=== PATIENT | female | born 1985 | race Caucasian/White ===

== ENCOUNTER 2017-09-09 12:51 | Inpatient (IN) | payer OTHER, SELFPAY ==
[~2017-09-09] VITALS: Ht 160 cm; Wt 48.4 kg
[~2017-09-09 12:51] MED LIST: cloNIDine HCL 0.1 MG/24 HR PATCH TOP SCH; cloNIDine HCL 0.2 MG/24 HR PATCH TOP SCH
[2017-09-09] MEDS ORDERED: SODIUM CHLORIDE HYPERTONIC 3% 15ML NEB SOL NEB ONE ×2 (13:45→17:00)
[2017-09-09] MEDS: HEPARIN SOD (PORCINE) 5000 UNITS/ML VIAL SC SCH ×2 (14:00→21:39)
[2017-09-09] MEDS ORDERED: ONDANSETRON 4MG/2ML VIAL (J2405) IV PRN (14:00)
[2017-09-09] MEDS ORDERED: BREO1INH INH (14:53)
[2017-09-09] MEDS ORDERED: VENTAER INH (14:53)
[2017-09-09] MEDS ORDERED: SERT-138 PO (14:59)
[2017-09-09] MEDS ORDERED: SENO8.6T5 PO (14:59)
[2017-09-09] MEDS ORDERED: COLA100C5 PO (14:59)
[2017-09-09] MEDS ORDERED: LOVE1INJ SC (14:59)
[2017-09-09] MEDS ORDERED: CEFA2IV2 IV (14:59)
[2017-09-09] MEDS ORDERED: MIRA3350 PO (15:01)
[2017-09-09] MEDS ORDERED: NICODIS TD (15:01)
[2017-09-09] MEDS ORDERED: VALI10TA PO (15:03)
[2017-09-09 15:19] VITALS: BP 111/56
[2017-09-09] MEDS: MULTIVITAMINS/MINERALS THERAP 1 TAB PO SCH (16:20)
[2017-09-09] MEDS: FOLIC ACID 1 MG TAB PO SCH (16:20)
[2017-09-09] MEDS: PANTOPRAZOLE 40MG TAB (PROTONIX) PO SCH (16:20)
[2017-09-09] MEDS: THIAMINE 100 MG TAB PO SCH (16:21)
[2017-09-09] MEDS: NS 1,000 ML IV SCH (16:21)
[2017-09-09 16:26] LABS: BASO % 0.3 % (0.0-1.0); EOS # 0.2 10^3/uL (0.0-0.50); EOS % 1.9 % (0.0-3.0); IMMATURE GRANULOCYTE % 0.6 % (0-0); LYMPH # 1.8 10^3/uL (1.5-4.5); LYMPH % 22.5 % (24.0-44.0); MEAN CORPUSCULAR HEMOGLOBIN 26.5 pg (27.0-33.0); MEAN CORPUSCULAR HGB CONC 30.4 g/dl (32.0-36.5); MEAN CORPUSCULAR VOLUME 87.1 fl (80.0-96.0); MONO # 0.4 10^3/uL (0.0-0.8); MONO % 4.7 % (0.0-5.0); NEUTROPHILS # 5.5 10^3/uL (1.8-7.7); PLATELET COUNT, AUTOMATED 261 10^3/uL (150-450); RED CELL DISTRIBUTION WIDTH 19.3 % (11.5-14.5); WHITE BLOOD COUNT 7.9 10^3/uL (4.0-10.0)
[2017-09-09 16:37] LABS: INR 0.94
--- NOTE | 2017-09-09 16:42 | REP ---
Clinical: Shortness of breath . Comparison: None . Findings: The mediastinum and cardiac silhouette are stable and within normal limits for portable technique. The lung russell are clear without acute consolidation, effusion, or pneumothorax. Skeletal structures are intact. Impression: No acute cardiopulmonary process appreciated. Signed by Ray Allen MD 09/09/2017 04:34 P
[2017-09-09] MEDS ORDERED: IPRATROPIUM 0.5MG/ALBUTEROL 2.5MG INH SOL UD 3ML (DUONEB)(J7620) NEB PRN (16:45)
[2017-09-09 16:49] LABS: ERYTHROCYTE SEDIMENTATION RATE 87 mm/hr (0-20)
[2017-09-09 16:57] LABS: ALBUMIN 2.6 GM/DL (3.2-5.2); ALBUMIN/GLOBULIN RATIO 0.72 (1.00-1.93); ALKALINE PHOSPHATASE 51 U/L (45-117); ALT/SGPT 18 U/L (12-78); ANION GAP 5 MEQ/L (8-16); AST/SGOT 16 U/L (7-37); BILIRUBIN,TOTAL 0.1 MG/DL (0.2-1.0); BLOOD UREA NITROGEN 13 MG/DL (7-18); CARBON DIOXIDE LEVEL 28 MEQ/L (21-32); CHLORIDE LEVEL 106 MEQ/L (98-107); CREATININE FOR GFR 0.63 MG/DL (0.55-1.02); GLOMERULAR FILTRATION RATE > 60.0 (>60); GLUCOSE, FASTING 119 MG/DL (70-105); POTASSIUM SERUM 4.9 MEQ/L (3.5-5.1); SODIUM LEVEL 139 MEQ/L (136-145); TOTAL PROTEIN 6.2 GM/DL (6.4-8.2)
[2017-09-09] MEDS ORDERED: KETOROLAC 30 MG/ML VIAL (J1885) IV PRN (17:30)
--- NOTE | 2017-09-09 17:31 | HPE ---
DATE OF ADMISSION: 09/09/2017 PRIMARY CARE PROVIDER: Dr. Adonis Iglesias CHIEF COMPLAINT: Suspected endocarditis, fevers. HISTORY OF PRESENT ILLNESS: This is a 32-year-old female patient with underlying medical history of asthma, IV drug use, last with oxycodone, last used two weeks ago, smoking, asthma, who was treated for methicillin-sensitive Staphylococcus aureus (MSSA) in January and signed herself out against medical advice. Subsequently, she returned with a two-week history of progressively worsening fevers with a temperature of 103 and coughing productive of blood-tinged phlegm. The patient with culture returned to [facility] on 09/05/2017 for MSSA bacteremia, found to have a fever of 104. CT angiogram shows cavitary peripheral lesions. The patient denies any sick contact. Subsequently, the patient was admitted. She was given Ancef. She also has a history of depression and denies suicidality. Patient with questionable thyroid dysfunction. Over the last 24 hours, maximum temperature (T-max) is 99.8 as per the patient. Reported some mild cough. Reported chest pain, pleuritic in nature. Denies any nausea or vomiting. Reported anxiety secondary to opiate withdrawal and also reported constipation. ALLERGIES: No known drug allergies. PAST MEDICAL HISTORY: 1. IV drug use. 2. Asthma. 3. Depression, denies suicidality. 4. Methicillin-sensitive Staphylococcus aureus (MSSA) on cultures. PAST SURGICAL HISTORY: Tubal ligation. FAMILY HISTORY: Grandfather with throat cancer. SOCIAL HISTORY: Reported IV drug use, smoking one pack per day for 15 years, IV drug use for three years with oxycodone. She lives at home with and child was taken away from [employer]. REVIEW OF SYSTEMS: Positive for chest pain, anxiety. Reported depression. Denies suicidality. Reported cough with blood in the sputum and blackish sputum. Reported fevers and chills. PHYSICAL EXAMINATION: VITAL SIGNS: Temperature 98.3, pulse 90, respiratory rate 18, blood pressure 111/56, pulse oximetry 98% on room air. GENERAL: The patient is frail in no acute distress. HEENT: Normocephalic, atraumatic. PULMONARY: Bilaterally clear to auscultation. CARDIAC: Regular, S1, S2. ABDOMEN: Soft, nontender. Positive bowel sounds. EXTREMITIES: No clubbing, cyanosis, or edema. IMAGING STUDIES: EKG shows sinus rhythm with no ST segment changes. CT scan shows cavitary lesion periphery of the lung. LABORATORY DATA: WBC 7.8, hemoglobin and hematocrit 9/29.6, platelets 261. Chemistry: At [facility], sodium 145, potassium 34, chloride 110, bicarbonate 26, BUN 13, creatinine 0.49, glucose 101, ESR 61, C-reactive protein 26.1, TSH 4.928. ASSESSMENT AND PLAN: This is a 32-year-old female patient with history of asthma, IV drug use with oxycodone, smoking, initially admitted to [facility] with methicillin-sensitive Staphylococcus aureus (MSSA), suspected pneumonia, found to have cavitary lesions on the periphery of the lung, treated with Ancef, transferred to [facility] for infectious disease (ID) consultation and transesophageal echocardiogram. PROBLEM LIST: 1. Methicillin-sensitive Staphylococcus aureus (MSSA) suspected endocarditis with fevers. Continue Ancef. Infectious disease has been consulted. Followup erythrocyte sedimentation rate (ESR), C-reactive protein (CRP), blood cultures. Discussed with Dr. Hand for transesophageal echocardiogram. Case discussed with Dr. Kahn. IV fluids have been given. Will need long-term access. 2. The patient with significant cough. Reported blood-tinged sputum. Discussed with Dr. Kahn. Likely secondary to septic emboli. Low suspicion for tuberculosis (TB) as per Dr. Kahn given the CT finding. Therefore, no need for airborne isolation as per Dr. Kahn. We will get HIV, hepatitis, sputum cultures. Chest x-ray appreciated. QuantiFERON Gold has been ordered for screening purposes. 3. IV drug use. Followup hepatitis, HIV. Monitor for withdrawal. Thiamine, folate, multivitamin, clonidine. Avoid benzodiazepines. Avoid narcotics. Reglan. Social work has been consulted. 4. Asthma. The patient does not have any wheeze. Nebulizer treatment as needed. 5. Low thyroid-stimulating hormone (TSH). Thyroid profile has been ordered. 6. Depression. Continue current medication, nonsuicidal. 7. Deep vein thrombosis (DVT) prophylaxis. Heparin subcutaneous. DISPOSITION PLANNING: Pending clinical improvement.
[2017-09-09] MEDS: METOCLOPRAMIDE 5 MG TAB PO SCH (18:00)
[2017-09-09 18:30] VITALS: BP 116/66
--- NOTE | 2017-09-09 19:04 | CR.PDOC ---
[facility] Consultation Consultation Infectious Disease Consult Note Date of Consultation: 09/09/2017 Reason for Consultation: Suspected endocarditis secondary to IV drug use Referring Provider: Dr. Gaviota Gipson PCP: Dr. Adonis Iglesias HISTORY OF PRESENT ILLNESS: Ms. Shrestha is a 32-year-old female who was transferred to our facility from [facility] for in order to have a transesophageal echocardiogram performed for evaluation of endocarditis, as well as she will need placement of the PICC line for long-term IV antibiotics. Cultures have been confirmed that she has MSSA bacteremia, and most recent blood cultures are negative as she has been on appropriate therapy with cefazolin 2 g IV every 8 hours. She had been in [facility] for the past 5 days, she states that for approximately one week prior to that she had been having severe fevers up to 104, chills, night sweats, lack of appetite, a few episodes of vomiting, cough, chest pain with cough and deep inspiration, she is also having occasional blood-tinged sputum. It does appear that she has some cavitary lesions on chest CT which is suspected to be septic emboli. ALLERGIES: No known drug allergies PAST MEDICAL HISTORY: IV drug use with a crushed oxycodone, she states that she did go to rehabilitation back in July 2016, she was clean for approximately 9 months, however in the past 2 months she has relapsed and was using IV drugs approximately 2-3 times a day. Prior to that she had been an IV drug user for approximately 2 years, she denies using heroin, cocaine, or any other drugs, and crust oxycodone is her drug of choice. She also does suffer from mild intermittent asthma Depression, she did have suicidal ideations as a teenager, but does not have any recently or currently. She does have a psychiatric counselor whom she has been trying to work with. PAST SURGICAL HISTORY: Tubal ligation SOCIAL HISTORY: She does indicate that she has 4 children, I believe their ages are 14, 11, 9, and 7. None of them are at home with her, as well as oncology social worker has been involved since the initiation of her IV drug use, and they appear to be with her father at this time. She apparently works on a farm. She denies any alcohol use. She has been smoking a pack per day since she was 16 years old. She has never been incarcerated, she is never been homeless, and she has not traveled out of side of the [facility]. She has never been exposed to tuberculosis that she knows of. FAMILY HISTORY: Her mother apparently does have asthma as well REVIEW OF SYSTEMS: Constitutional: All other she did suffer from all of these symptoms prior to her hospitalization, she currently denies fevers, chills, night sweats, recent weight gain/loss. She does admit that she is still going through opiate withdrawal almost every night, therefore she does continue to sweat, however is not from her fevers. HEENT: Patient denies blurred or double vision, transient visual disturbances, postnasal drip, epistaxis, sore throat, difficulty chewing or swallowing food. Cardiovascular: Patient denies palpitations, exertional dyspnea, orthopnea, edema of the extremities, claudication. Respiratory: She does admit to some sharp pain upon deep inspiration located mainly on the left chest wall. She does continue to cough, and said that she did have some blood-tinged sputum the past 1-2 days, and she says that her sputum has normally been black. Gastrointestinal: She currently denies nausea, vomiting, diarrhea, abdominal pain, melena, hematochezia, hematemesis, jaundice. She does suffer from constipation. PHYSICAL EXAMINATION: Vitals: Temperature 98.3, pulse 90 regular, respiratory rate 18, blood pressure 116/66, pulse oximetry 98% on room air General: Awake, alert, she is not in any acute distress at this time. She is quite thin appearing HEENT: Head normocephalic atraumatic, conjunctiva are pink, sclera are nonicteric, buccal mucosa is pink and moist with no lesions in the oropharynx. Hearing is grossly intact to conversation. Dentition is poor. Respiratory: Clear to auscultation bilaterally with no wheezes, rales, or rhonchi. Cardiovascular: Regular rate and rhythm, with no rubs, gallops, or murmur. Abdomen: Soft, nontender, nondistended, no hepatosplenomegaly appreciated. Bowel sounds present. Extremities: 2+ pulses in the radial and dorsalis pedis bilaterally. No evidence of cyanosis. No evidence of splinter hemorrhages. She does have some clubbing of the fingernails. She does have multiple small pinpoint accident where she previously injected IV drugs in the bilateral antecubital spaces as well as bilateral hands and wrists. MICROBIOLOGY: According to records from [facility] the patient did have MSSA bacteremia and this is also suspected etiology for her pneumonia ASSESSMENT/PLAN: She was transferred to our facility for evaluation of MSSA bacteremia, MSSA pneumonia, and suspected endocarditis from IV drug use. Upon reviewing the records, it does appear that she does have cavitary lung lesions, however this is most likely from septic emboli, and the risk for TB is low, therefore she no longer needs to be on precautions for this. It appears that she is already been scheduled for a transesophageal echocardiogram for tomorrow, as well as PICC line placement for tomorrow as well. I recommend continuing the same dose of antibiotic she was on previously of cefazolin 2 g IV every 8 hours. She will likely need to be on this for 4-6 weeks. It appears that the plan is for her to have these evaluations completed, and then she will return back to [facility] for the remainder of her antibiotic administration (perhaps in the rehabilitation area, or long-term nursing facility), as it is not a good idea to allow an IV drug user to go home with a PICC line. In addition of this it would be a good idea to evaluate her for HIV and hepatitis. She'll need treatment for her pain, as well as treatment for her opiate withdrawal per recommendations from the hospitalist team. My preceptor for this patient encounter was physically present in the building during the encounter and was fully available. As needed, all aspects of the patient interview, examination, medical decision making process, and medical care plan development were reviewed and approved by the preceptor. Preceptor is aware and concurs with the plan as stated in the body of this note and will attest to such by his/her cosignature. Laboratory Data Labs 24H Laboratory Tests 2 09/09/17 16:08: Immature Granulocyte % (Auto) 0.6H, White Blood Count 7.9, Red Blood Count 3.40L , Hemoglobin 9.0L, Hematocrit 29.6L, Mean Corpuscular Volume 87.1, Mean Corpuscular Hemoglobin 26.5L, Mean Corpuscular Hemoglobin Concent 30.4L, Red Cell Distribution Width 19.3H, Platelet Count 261, Neutrophils (%) (Auto) 70.0H , Lymphocytes (%) (Auto) 22.5L, Monocytes (%) (Auto) 4.7, Eosinophils (%) (Auto ) 1.9, Basophils (%) (Auto) 0.3, Neutrophils # (Auto) 5.5, Lymphocytes # (Auto) 1.8, Monocytes # (Auto) 0.4, Eosinophils # (Auto) 0.2, Basophils # (Auto) 0.0, Immature Granulocyte # (Auto) 0.1H, Nucleated Red Blood Cells % (auto) 0.0, Erythrocyte Sedimentation Rate 87H, Prothrombin Time 12.6, Prothromb Time International Ratio 0.94, Anion Gap 5L, Glomerular Filtration Rate > 60.0, Lactic Acid Level 1.3, Blood Urea Nitrogen 13, Creatinine 0.63, Sodium Level 139 , Potassium Level 4.9, Chloride Level 106, Carbon Dioxide Level 28, Calcium Level 8.0L, Aspartate Amino Transf (AST/SGOT) 16, Alanine Aminotransferase (ALT/ SGPT) 18, Alkaline Phosphatase 51, Total Bilirubin 0.1L, Total Protein 6.2L, Albumin 2.6L, Total Creatine Kinase 17L, Creatine Kinase MB 1.0, Creatine Kinase MB Relative Index 5.88H, Troponin I < 0.02, C-Reactive Protein, Quantitative 1.10H, Albumin/Globulin Ratio 0.72L CBC/BMP Laboratory Tests 09/09/17 16:08 Red Blood Count 3.40 L, Mean Corpuscular Volume 87.1, Mean Corpuscular Hemoglobin 26.5 L, Mean Corpuscular Hemoglobin Concent 30.4 L, Red Cell Distribution Width 19.3 H, Neutrophils (%) (Auto) 70.0 H, Lymphocytes (%) (Auto ) 22.5 L, Monocytes (%) (Auto) 4.7, Eosinophils (%) (Auto) 1.9, Basophils (%) ( Auto) 0.3, Neutrophils # (Auto) 5.5, Lymphocytes # (Auto) 1.8, Monocytes # (Auto ) 0.4, Eosinophils # (Auto) 0.2, Basophils # (Auto) 0.0, Calcium Level 8.0 L, Aspartate Amino Transf (AST/SGOT) 16, Alanine Aminotransferase (ALT/SGPT) 18, Alkaline Phosphatase 51, Total Bilirubin 0.1 L, Total Protein 6.2 L, Albumin 2.6 L Microbiology Microbiology 09/09/17 Blood Culture, Received Pending 09/09/17 Blood Culture, Received Pending 09/09/17 Gram Stain, Received Pending 09/09/17 Sputum Culture, Received Pending Allergies Coded Allergies: No Known Drug Allergy (Verified Allergy, Unknown, 09/09/17) Home Medications Scheduled Cefazolin Sod (Cefazolin/Dextrose 2 gm/100Ml) 2 Gm/100 Ml Inj, 2 GM IV Q8H, ( Reported) Docusate Sodium (Colace) 100 Mg Cap, 100 MG PO BID, (Reported) Enoxaparin Sodium (Lovenox) 40 Mg/0.4 Ml Inj, 40 MG SC QHS, (Reported) Fluticasone/Vilanterol (Breo Ellipta 100-25 Mcg/INH) 1 Inh Inh, 1 PUFF INH DAILY , (Reported) Nicotine (Nicotine Step 1) 21 Mg/24 Hr Dis, 21 MG TD DAILY, (Reported) Senna (Senokot) 8.6 Mg Tab, 1 TAB PO BID, (Reported) Sertraline HCl (Sertraline HCl) 100 Mg Tab, 200 MG PO DAILY, (Reported) Scheduled PRN Albuterol Sulfate (Ventolin Hfa) 108 Mcg/Act Aer, 2 PUFFS INH Q4HP PRN for SHORTNESS OF BREATH, (Reported) Diazepam (Valium) 10 Mg Tab, 10 MG PO Q6HP PRN for AGITATION, (Reported) Polyethylene Glycol (Miralax) 1 Pow Pow, 17 GM PO DAILYPRN PRN for CONSTIPATION , #1 (Reported) dilute in 8 ounces of water or juice BAHMAN QUIÑONES DO Sep 09, 2017 19:04
[2017-09-09 20:00] VITALS: BP 155/76
[2017-09-09] MEDS: IPRATROPIUM 0.5MG/ALBUTEROL 2.5MG INH SOL UD 3ML (DUONEB)(J7620) NEB SCH (20:00)
[2017-09-09] MEDS ORDERED: hydrOXYzine 10 MG TAB PO ONE (20:45)
[2017-09-09] MEDS: SENOKOT S TAB PO SCH (21:39)
[2017-09-10] VITALS (22 sets, daily range): BP systolic 96–133; BP diastolic 55–79
[2017-09-10] MEDS: NS 1,000 ML IV SCH (01:34)
[2017-09-10] MEDS: IPRATROPIUM 0.5MG/ALBUTEROL 2.5MG INH SOL UD 3ML (DUONEB)(J7620) NEB SCH ×4 (02:00→20:00)
[2017-09-10 05:36] LABS: MEAN CORPUSCULAR HEMOGLOBIN 26.8 pg (27.0-33.0); MEAN CORPUSCULAR HGB CONC 30.8 g/dl (32.0-36.5); MEAN CORPUSCULAR VOLUME 87.2 fl (80.0-96.0); PLATELET COUNT, AUTOMATED 251 10^3/uL (150-450); RED CELL DISTRIBUTION WIDTH 19.3 % (11.5-14.5); WHITE BLOOD COUNT 7.1 10^3/uL (4.0-10.0)
[2017-09-10 06:06] LABS: ANION GAP 6 MEQ/L (8-16); BLOOD UREA NITROGEN 8 MG/DL (7-18); CARBON DIOXIDE LEVEL 28 MEQ/L (21-32); CHLORIDE LEVEL 107 MEQ/L (98-107); CREATININE FOR GFR 0.56 MG/DL (0.55-1.02); GLOMERULAR FILTRATION RATE > 60.0 (>60); GLUCOSE, FASTING 98 MG/DL (70-105); POTASSIUM SERUM 4.3 MEQ/L (3.5-5.1); SODIUM LEVEL 141 MEQ/L (136-145); T UPTAKE 34 % (30-39); THYROXINE (T4) 6.3 UG/DL (4.5-12.0)
[2017-09-10] MEDS ORDERED: ACETAMINOPHEN 325 MG TAB PO ONE (06:15)
[2017-09-10] MEDS: METOCLOPRAMIDE 5 MG TAB PO SCH ×3 (06:30→17:30)
[2017-09-10] MEDS: HEPARIN SOD (PORCINE) 5000 UNITS/ML VIAL SC SCH ×3 (06:30→20:41)
[2017-09-10] MEDS: ACETAMINOPHEN TAB 650MG DOSE (2X325MG) PO PRN ×2 (06:31→18:30)
[2017-09-10] MEDS: FOLIC ACID 1 MG TAB PO SCH (08:39)
[2017-09-10] MEDS: MIRALAX *UNIT DOSE* 17GM PACKET PO SCH (08:39)
[2017-09-10] MEDS: SENOKOT S TAB PO SCH ×2 (08:40→20:41)
[2017-09-10] MEDS: THIAMINE 100 MG TAB PO SCH (08:40)
[2017-09-10] MEDS: SERTRALINE 100 MG TAB PO SCH (08:40)
[2017-09-10] MEDS: MULTIVITAMINS/MINERALS THERAP 1 TAB PO SCH (08:40)
[2017-09-10] MEDS: NICOTINE 21MG/24HR 1 EA TRANSDERMAL TD SCH (08:41)
[2017-09-10] MEDS: PANTOPRAZOLE 40MG TAB (PROTONIX) PO SCH (08:42)
[2017-09-10] MEDS: SODIUM CHLORIDE HYPERTONIC 3% 15ML NEB SOL NEB SCH ×2 (09:00→17:00)
[2017-09-10] MEDS: diazePAM 2 MG TAB PO PRN ×2 (09:24→20:41)
--- NOTE | 2017-09-10 11:27 | IPNPDOC ---
Date Seen The patient was seen on 09/10/17. Progress Note SUBJECTIVE: Patient is a 32-year-old female with past medical history of asthma; IV drug use, last used crushed oxycodone IV two weeks ago presenting from [facility] for further evaluation and treatment of MSSA bacteremia and possible endocarditis with pulmonary septic emboli. Today she was seen bedside, sitting up in bed in no apparent distress, but appearing mildly anxious. She does continue to have constipation. She denies lightheadedness, dizziness, headache, chest pain, difficulty breathing, shortness of breath, nausea, vomiting. OBJECTIVE PHYSICAL EXAMINATION: VITAL SIGNS: Please see below. GENERAL: Well-appearing female appearing older than her stated age. HEENT: Atraumatic, normocephalic. EOMI. Neck supple. CARDIOVASCULAR: Normal S1/S2, regular rate, no noted rubs, murmurs, or gallops. RESPIRATORY: Initial inspiratory wheezing noted in the bases bilaterally; clear otherwise bilaterally ABDOMINAL: Soft, non-tender, no peritoneal signs. Normoactive bowel sounds. EXTREMITIES: Moves all extremities NEUROLOGICAL: CN II-XII gross intact, no reported peripheral neuropathy PSYCHOLOGICAL: Appears mildly anxious LABORATORY DATA: Please see below. MICROBIOLOGY: Please see below. IMAGING: Chest X-Ray Impression: No acute cardiopulmonary process appreciated. Echocardiogram: JEANNETTE planned for today. DVT prophylaxis ordered?: Heparin 5000 units SQ Q8H. ASSESSMENT AND PLAN: This is a 32-year-old female with MSSA bacteremia , possible endocarditis with pulmonary septic emboli. PROBLEMS: 1. Possible endocarditis: - Positive MSSA bacteremia - ID consulted and recommended continuing current dose of Cefazolin 2g IV every 8 hours; if positive endocarditis, then continue IV Abx therapy for 4-6 weeks likely in an in-patient setting as patient is a reported IV drug user and sending her home with a PICC line would be disadvantageous to her recovery; HIV and hepatitis screening - JEANNETTE planned for today 2. Anemia: - Obtaining reticulocyte count and peripheral smear - No active bleeding currently 3. Opioid withdrawal: - Currently on Thiamine, multivitamin, and Folate - Recommendations include managing opioid withdrawal; doing so with Diazepam 2mg by mouth every 6 hours, as needed 4. Cough, possibly due to septic emboli: - ID recommendations state that patient is low risk for TB and thus screening is not currently necessary - Sputum culture pending 5. Depression: - Continue with current medication regimen 6. High TSH: - Possibly reactive; T4, T3 were within optimal range - Currently asymptomatic for underlying, undiagnosed thyroid disease 7. Nicotine dependence: - Continue with Nicotine patch 8. Asthma - Continue with DuoNebs DISPOSITION: ICU until completion of JEANNETTE and PICC line placement; likely return to [facility] for continued IV antibiotic treatment. VS, I&O, 24H, Fishbone Vital Signs/I&O Vital Signs Date Time Temp Pulse Resp B/P (MAP) Pulse Ox O2 Delivery O2 Flow Rate FiO2 09/10/17 06:00 97 99/55 (70) 09/10/17 04:00 99.2 18 95 Room Air Laboratory Data 24H LABS Laboratory Tests 2 09/09/17 16:08: Immature Granulocyte % (Auto) 0.6H, White Blood Count 7.9, Red Blood Count 3.40L , Hemoglobin 9.0L, Hematocrit 29.6L, Mean Corpuscular Volume 87.1, Mean Corpuscular Hemoglobin 26.5L, Mean Corpuscular Hemoglobin Concent 30.4L, Red Cell Distribution Width 19.3H, Platelet Count 261, Neutrophils (%) (Auto) 70.0H , Lymphocytes (%) (Auto) 22.5L, Monocytes (%) (Auto) 4.7, Eosinophils (%) (Auto ) 1.9, Basophils (%) (Auto) 0.3, Neutrophils # (Auto) 5.5, Lymphocytes # (Auto) 1.8, Monocytes # (Auto) 0.4, Eosinophils # (Auto) 0.2, Basophils # (Auto) 0.0, Immature Granulocyte # (Auto) 0.1H, Nucleated Red Blood Cells % (auto) 0.0, Erythrocyte Sedimentation Rate 87H, Prothrombin Time 12.6, Prothromb Time International Ratio 0.94, Anion Gap 5L, Glomerular Filtration Rate > 60.0, Lactic Acid Level 1.3, Blood Urea Nitrogen 13, Creatinine 0.63, Sodium Level 139 , Potassium Level 4.9, Chloride Level 106, Carbon Dioxide Level 28, Calcium Level 8.0L, Aspartate Amino Transf (AST/SGOT) 16, Alanine Aminotransferase (ALT/ SGPT) 18, Alkaline Phosphatase 51, Total Bilirubin 0.1L, Total Protein 6.2L, Albumin 2.6L, Total Creatine Kinase 17L, Creatine Kinase MB 1.0, Creatine Kinase MB Relative Index 5.88H, Troponin I < 0.02, C-Reactive Protein, Quantitative 1.10H, Albumin/Globulin Ratio 0.72L 09/10/17 05:24: Nucleated Red Blood Cells % (auto) 0.0, Anion Gap 6L, Glomerular Filtration Rate > 60.0, Blood Urea Nitrogen 8, Creatinine 0.56, Sodium Level 141, Potassium Level 4.3, Chloride Level 107, Carbon Dioxide Level 28, Calcium Level 8.0L, C-Reactive Protein, Quantitative 0.89H, Magnesium Level 2.0, Thyroid Stimulating Hormone (TSH) 5.280H, Free Thyroxine Index 2.1, Thyroxine (T4) 6.3, Triiodothyronine (T3) Uptake 34 CBC/BMP Laboratory Tests 09/09/17 16:08 Red Blood Count 3.40 L, Mean Corpuscular Volume 87.1, Mean Corpuscular Hemoglobin 26.5 L, Mean Corpuscular Hemoglobin Concent 30.4 L, Red Cell Distribution Width 19.3 H, Neutrophils (%) (Auto) 70.0 H, Lymphocytes (%) (Auto ) 22.5 L, Monocytes (%) (Auto) 4.7, Eosinophils (%) (Auto) 1.9, Basophils (%) ( Auto) 0.3, Neutrophils # (Auto) 5.5, Lymphocytes # (Auto) 1.8, Monocytes # (Auto ) 0.4, Eosinophils # (Auto) 0.2, Basophils # (Auto) 0.0, Calcium Level 8.0 L, Aspartate Amino Transf (AST/SGOT) 16, Alanine Aminotransferase (ALT/SGPT) 18, Alkaline Phosphatase 51, Total Bilirubin 0.1 L, Total Protein 6.2 L, Albumin 2.6 L 09/10/17 05:24 Red Blood Count 3.43 L, Mean Corpuscular Volume 87.2, Mean Corpuscular Hemoglobin 26.8 L, Mean Corpuscular Hemoglobin Concent 30.8 L, Red Cell Distribution Width 19.3 H, Calcium Level 8.0 L Microbiology Microbiology 09/09/17 Blood Culture, Received Pending 09/09/17 Blood Culture, Received Pending 09/09/17 Gram Stain, Received Pending 09/09/17 Sputum Culture, Received Pending MARIAN ROSA Sep 10, 2017 09:17
[2017-09-10] MEDS ORDERED: SODIUM CHLORIDE 0.9% INJ 10 ML SYR IV PRN (12:30)
[2017-09-10 12:42] LABS: RETIC HEMOGLOBIN EQUIVALENT 31.4 pg (24-36); RETICULOCYTE % 4.2 % (0.5-1.5)
[2017-09-10 12:57] LABS: REASON FOR REVIEW COMPREHENSIVE REVIEW
[2017-09-10] MEDS ORDERED: MIDAZOLAM INJ 2 MG/2 ML VIAL (J2250) As Ordered ONE (16:21)
[2017-09-10] MEDS ORDERED: MIDAZOLAM INJ 2 MG/2 ML VIAL (J2250) IV ONE (16:43)
[2017-09-10] MEDS ORDERED: LIDOCAINE VISCOUS 2% SOLN 15ML UDC SS ONE (17:00)
[2017-09-10] MEDS: SODIUM CHLORIDE 0.9% INJ 10 ML SYR IV SCH (18:00)
[2017-09-10] MEDS: RAMELTEON 8 MG TAB (ROZEREM) PO SCH (22:08)
--- NOTE | 2017-09-11 00:45 | ECGEPIP ---
Stationary ECG Study [facility] Test Date: 2017-09-09 Pat Name: DIANNA CARDOSO Department: Room: [place] [address] Gender: F Professor Of Pathology: ALIVIA : 1985 Requested By: FABIOLA BO Order Number: [id number] Reading MD: Sean Forbes Measurements Intervals [place] Rate: 89 P: 71 [place]: 153 QRS: 42 QRSD: 78 T: 43 QT: 344 QTc: 419 Interpretive Statements SINUS RHYTHM No prior tracing in the system Electronically Signed On 09-11-2017 0:44:48 EST by Sean Forbes
[2017-09-11] MEDS: IPRATROPIUM 0.5MG/ALBUTEROL 2.5MG INH SOL UD 3ML (DUONEB)(J7620) NEB SCH ×4 (02:00→20:00)
[2017-09-11 02:15] VITALS: BP 98/52
[2017-09-11] MEDS ORDERED: diazePAM 2 MG TAB As Ordered ONE (02:55)
[2017-09-11 04:26] LABS: MEAN CORPUSCULAR HEMOGLOBIN 27.2 pg (27.0-33.0); MEAN CORPUSCULAR HGB CONC 31.1 g/dl (32.0-36.5); MEAN CORPUSCULAR VOLUME 87.5 fl (80.0-96.0); PLATELET COUNT, AUTOMATED 257 10^3/uL (150-450); RED CELL DISTRIBUTION WIDTH 18.7 % (11.5-14.5); WHITE BLOOD COUNT 7.2 10^3/uL (4.0-10.0)
[2017-09-11 04:30] VITALS: BP 93/61
[2017-09-11 04:55] LABS: ANION GAP 5 MEQ/L (8-16); BLOOD UREA NITROGEN 9 MG/DL (7-18); CALCIUM LEVEL 7.9 MG/DL (8.5-10.1); CARBON DIOXIDE LEVEL 29 MEQ/L (21-32); CHLORIDE LEVEL 106 MEQ/L (98-107); CREATININE FOR GFR 0.55 MG/DL (0.55-1.02); GLOMERULAR FILTRATION RATE > 60.0 (>60); GLUCOSE, FASTING 95 MG/DL (70-105); MAGNESIUM LEVEL 2.1 MG/DL (1.8-2.4); POTASSIUM SERUM 4.1 MEQ/L (3.5-5.1); SODIUM LEVEL 140 MEQ/L (136-145)
[2017-09-11] MEDS: HEPARIN SOD (PORCINE) 5000 UNITS/ML VIAL SC SCH ×3 (06:04→21:17)
[2017-09-11] MEDS: SODIUM CHLORIDE 0.9% INJ 10 ML SYR IV SCH ×2 (06:06→18:00)
[2017-09-11] MEDS: SERTRALINE 100 MG TAB PO SCH (07:57)
[2017-09-11] MEDS: METOCLOPRAMIDE 5 MG TAB PO SCH ×3 (07:57→18:05)
[2017-09-11] MEDS: PANTOPRAZOLE 40MG TAB (PROTONIX) PO SCH (07:58)
[2017-09-11] MEDS: NICOTINE 21MG/24HR 1 EA TRANSDERMAL TD SCH (07:58)
[2017-09-11] MEDS: MULTIVITAMINS/MINERALS THERAP 1 TAB PO SCH (07:58)
[2017-09-11] MEDS: THIAMINE 100 MG TAB PO SCH (07:58)
[2017-09-11] MEDS: FOLIC ACID 1 MG TAB PO SCH (07:58)
[2017-09-11] MEDS: SENOKOT S TAB PO SCH ×2 (07:58→21:16)
[2017-09-11] MEDS: MIRALAX *UNIT DOSE* 17GM PACKET PO SCH (07:59)
[2017-09-11 08:00] VITALS: BP 99/65
[2017-09-11] MEDS: diazePAM 2 MG TAB PO PRN ×3 (09:12→21:57)
[2017-09-11] MEDS: GABAPENTIN 100 MG CAP PO SCH ×3 (11:05→21:16)
--- NOTE | 2017-09-11 11:30 | IPNPDOC ---
Date Seen The patient was seen on 09/11/17. Progress Note SUBJECTIVE: Patient is a 32-year-old female with past medical history of asthma; IV drug use, last used crushed oxycodone IV two weeks ago presenting from [facility] for further evaluation and treatment of MSSA bacteremia and possible endocarditis with pulmonary septic emboli. Today, patient was seen bedside, lying in bed supine awake and in no apparent distress. She states withdrawal symptoms limited her sleep overnight to 1 hour. She reports sweating and chills due to withdrawal overnight; however, she has had no recorded episodes of tachycardia or hypertension. She states she has a headache across her forehead bilaterally, but attributes this to not having her glasses. At present, she denies lightheadedness, dizziness, chest pain, difficulty breathing, abdominal pain, nausea, vomiting. OBJECTIVE PHYSICAL EXAMINATION: VITAL SIGNS: Please see below. GENERAL: Well-appearing female appearing older than her stated age HEENT: Atraumatic, normocephalic. EOMI. PERRLA; pupils dilated at 6mm at rest. Neck supple CARDIOVASCULAR: Normal S1/S2; regular rate; no murmurs, rubs, or gallops noted. RESPIRATORY: Clear to auscultation apices to bases bilaterally. ABDOMINAL: Soft, non-tender, no peritoneal signs, normoactive bowel sounds EXTREMITIES: Moves all extremities; no noted peripheral edema NEUROLOGICAL: CN II-XII grossly intact PSYCHOLOGICAL: Anxious appearing, but with pleasant affect; demonstrates understanding of treatment plan. LABORATORY DATA: Please see below. MICROBIOLOGY: Please see below. IMAGING: Chest X-Ray Impression: No acute cardiopulmonary process appreciated. Echocardiogram: JEANNETTE planned for today. DVT prophylaxis ordered?: Heparin 5000 units SQ Q8H. ASSESSMENT AND PLAN: This is a 32-year-old female with MSSA bacteremia , vegetative endocarditis with pulmonary septic emboli. PROBLEMS: 1. Endocarditis: - Positive MSSA bacteremia reported from [place]; current cultures so far are negative - ID consulted and recommended continuing current dose of Cefazolin 2g IV every 8 hours and to continue with 4-6 weeks, likely in an in-patient setting as patient is a reported IV drug user and sending her home with a PICC line would be disadvantageous to her recovery - HIV and hepatitis screening are both negative - JEANNETTE yesterday showed vegetations; will require 4-6 weeks intravenous antibiotic therapy 2. Anemia: - No active bleeding currently - Reticulocyte production index calculates to 1.87 (using normal Hct of 45): normal response to anemia - Peripheral smear shows normocytic anemia; no abnormal immature leukocytes identified; essentially normal platelet morphology 3. Opioid withdrawal: - Currently on Thiamine, multivitamin, and Folate - Diazepam 2mg by mouth every 6 hours, as needed for anxiety - Gabapentin 100mg by mouth 3 times per day for neuropathic pain - Ramelteon 8mg by mouth every day at bedtime 4. Cough, possibly due to septic emboli: - ID recommendations state that patient is low risk for TB and thus screening is not currently necessary - Sputum culture showed yeast like organism, staphylococcus aureus 5. Depression: - Continue with current medication regimen 6. High TSH: - Possibly reactive; T4, T3 were within optimal range - Currently asymptomatic for underlying, undiagnosed thyroid disease 7. Nicotine dependence: - Continue with Nicotine patch 8. Asthma - Continue with DuoNebs DISPOSITION: Med/surg to continue IV antibiotics awaiting acknowledgement by [facility] for placement there. VS, I&O, 24H, [facility] Vital Signs/I&O Vital Signs Date Time Temp Pulse Resp B/P (MAP) Pulse Ox O2 Delivery O2 Flow Rate FiO2 09/11/17 08:00 98.3 99 18 99/65 (76) 98 Room Air 09/10/17 17:04 3.0 I&O- Last 24 Hours up to 6 AM 09/12/17 06:00 Intake Total 290 ml Output Total 700 ml Balance -410 ml Laboratory Data 24H LABS Laboratory Tests 2 09/11/17 04:14: Nucleated Red Blood Cells % (auto) 0.0, Anion Gap 5L, Glomerular Filtration Rate > 60.0, Blood Urea Nitrogen 9, Creatinine 0.55, Sodium Level 140, Potassium Level 4.1, Chloride Level 106, Carbon Dioxide Level 29, Calcium Level 7.9L, Magnesium Level 2.1, C-Reactive Protein, Quantitative 0.80H CBC/BMP Laboratory Tests 09/11/17 04:14 Red Blood Count 3.35 L, Mean Corpuscular Volume 87.5, Mean Corpuscular Hemoglobin 27.2, Mean Corpuscular Hemoglobin Concent 31.1 L, Red Cell Distribution Width 18.7 H, Calcium Level 7.9 L Microbiology Microbiology 09/09/17 Blood Culture - Preliminary, Resulted No growth after 24 hours . All specim... 09/09/17 Blood Culture - Preliminary, Resulted No growth after 24 hours . All specim... 09/09/17 Gram Stain - Final, Resulted 09/09/17 Sputum Culture - Preliminary, Resulted Yeast Like Organism Staphylococcus Aureus MARIAN ROSA-Miroslava Sep 11, 2017 11:20
[2017-09-11] MEDS ORDERED: THIA100TA PO (12:23)
[2017-09-11] MEDS ORDERED: DIAZ2TAB PO (12:23)
[2017-09-11] MEDS ORDERED: FOLI1TAB4 PO (12:23)
[2017-09-11] MEDS ORDERED: VITMTA PO (12:23)
[2017-09-11] MEDS ORDERED: GABA-279 PO (12:23)
[2017-09-11 16:00] VITALS: BP 103/74
--- NOTE | 2017-09-11 16:22 | T-ECHO ---
DATE OF PROCEDURE: 09/10/2017 REFERRING PHYSICIAN: Gaviota Gipson MD INDICATION: Methicillin-sensitive Staphylococcus aureus (MSSA) bacteremia, fever. 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 Associated tricuspid regurgitation. PROCEDURE PERFORMED: Transesophageal echocardiogram. PROCEDURE PERFORMED BY: Erick Hand MD No data analysis assistant. IV conscious sedation performed with midazolam 4 mg IV. No complications. PROCEDURE DESCRIPTION: Rhythm appeared to be sinus. Patient received viscous lidocaine to gargle. This was followed with a total of 4 mg midazolam IV. Esophageal intubation was accomplished without difficulty using a Dash two-dimensional phased array multiplane transesophageal echocardiogram probe. The left and right ventricles appeared normal in size and systolic function. There appeared to be some loss of the tricuspid valve tissue along the free edges but not definite for that. There was failure of coaptation with associated severe tricuspid regurgitation. A 1.5 x 1.0 cm vegetation was the largest one identified on the right atrial side of the tricuspid valve, which was highly mobile. There appeared to be at least one other very small vegetation. Intra-atrial septum was intact anatomically and by color flow Doppler. No mass or thrombi were seen within the right atrium or right atrial appendage. Pulmonary vein inflow in the left upper pulmonary vein was normal. Pulmonary venous connections to the left atrium were normal. No pericardial effusion. Pulmonic valve appeared normal and without regurgitation. Aortic valve was structurally and functionally normal. Mitral leaflets were structurally and functionally normal. Trace mitral regurgitation was present and within physiologic limits. Distal aortic arch and descending thoracic aorta were normal. CONCLUSIONS: 1.5 x 1.0 cm vegetation involving the tricuspid valve on the atrial side. Findings consistent with tricuspid valve infective endocarditis. Associated severe tricuspid regurgitation.
--- NOTE | 2017-09-11 16:30 | REP ---
Procedure: PICC line insertion with Felipe-Maria Guadalupe The procedure was performed under the direct supervision of Dr. Earl. The risks and benefits of the procedure were explained to the patient and informed consent was obtained. The right basilic vein was localized using ultrasound guidance. The skin was prepped and draped in a sterile fashion. 2% lidocaine was used as a local anesthetic. Using ultrasound guidance the basilic vein was cannulated and a 0.018 guidewire was inserted and advanced to the SVC using fluoroscopic guidance. The needle was removed and a 4.5 [place]ruguayan dilator and peel-away sheath was inserted over the guide wire. A 4.5 [place] single lumen catheter was cut to length of 43 cm. The dilator was removed and the catheter was inserted over the guide wire with the tip ending in the SVC. The peel-away sheath was removed and the catheter was flushed with heparinized saline as per Hospital protocol. The catheter was affixed to the skin and a sterile dressing was applied. The the patient tolerated the procedure well and there were no immediate complications. 0.2 minutes of fluoro time was utilized for this procedure. Reviewed by ITZ Bernal 09/10/2017 03:03 PSigned by Brett Earl MD 09/11/2017 04:22 P
[2017-09-11] MEDS: RAMELTEON 8 MG TAB (ROZEREM) PO SCH (21:16)
--- NOTE | 2017-09-11 21:40 | IPNPDOC ---
Text Note Date of Service The patient was seen on 09/11/17. NOTE Patient wanted sleeping meds as per nurse (called 815pm). Melatonin Given. VS,Fishbone, I+O VS, Fishbone, I+O Laboratory Tests 09/11/17 04:14 Red Blood Count 3.35 L, Mean Corpuscular Volume 87.5, Mean Corpuscular Hemoglobin 27.2, Mean Corpuscular Hemoglobin Concent 31.1 L, Red Cell Distribution Width 18.7 H, Calcium Level 7.9 L Vital Signs Date Time Temp Pulse Resp B/P (MAP) Pulse Ox O2 Delivery O2 Flow Rate FiO2 09/11/17 16:00 98.3 104 18 103/74 (84) 96 Room Air 09/10/17 17:04 3.0 I&O- Last 24 Hours up to 6 AM 09/12/17 06:00 Intake Total 290 ml Output Total 700 ml Balance -410 ml JOAQUIM POWERS MD Sep 11, 2017 21:40
[2017-09-11 23:09] VITALS: BP 96/66
[2017-09-12] MEDS: IPRATROPIUM 0.5MG/ALBUTEROL 2.5MG INH SOL UD 3ML (DUONEB)(J7620) NEB SCH ×2 (01:53→07:27)
[2017-09-12] MEDS: ACETAMINOPHEN TAB 650MG DOSE (2X325MG) PO PRN (02:53)
[2017-09-12] MEDS: SODIUM CHLORIDE 0.9% INJ 10 ML SYR IV SCH (06:34)
[2017-09-12] MEDS: HEPARIN SOD (PORCINE) 5000 UNITS/ML VIAL SC SCH (06:34)
[2017-09-12 07:15] LABS: MEAN CORPUSCULAR HEMOGLOBIN 26.5 pg (27.0-33.0); MEAN CORPUSCULAR HGB CONC 30.2 g/dl (32.0-36.5); MEAN CORPUSCULAR VOLUME 87.6 fl (80.0-96.0); PLATELET COUNT, AUTOMATED 258 10^3/uL (150-450); RED CELL DISTRIBUTION WIDTH 18.8 % (11.5-14.5); WHITE BLOOD COUNT 7.4 10^3/uL (4.0-10.0)
[2017-09-12 07:30] LABS: ANION GAP 4 MEQ/L (8-16); BLOOD UREA NITROGEN 16 MG/DL (7-18); CALCIUM LEVEL 8.5 MG/DL (8.5-10.1); CARBON DIOXIDE LEVEL 32 MEQ/L (21-32); CHLORIDE LEVEL 106 MEQ/L (98-107); CREATININE FOR GFR 0.55 MG/DL (0.55-1.02); GLOMERULAR FILTRATION RATE > 60.0 (>60); GLUCOSE, FASTING 117 MG/DL (70-105); MAGNESIUM LEVEL 2.2 MG/DL (1.8-2.4); POTASSIUM SERUM 4.5 MEQ/L (3.5-5.1); SODIUM LEVEL 142 MEQ/L (136-145)
[2017-09-12] MEDS: THIAMINE 100 MG TAB PO SCH (07:50)
[2017-09-12] MEDS: MULTIVITAMINS/MINERALS THERAP 1 TAB PO SCH (07:50)
[2017-09-12] MEDS: FOLIC ACID 1 MG TAB PO SCH (07:50)
[2017-09-12] MEDS: GABAPENTIN 100 MG CAP PO SCH (07:50)
[2017-09-12] MEDS: METOCLOPRAMIDE 5 MG TAB PO SCH ×2 (07:50→11:27)
[2017-09-12] MEDS: SERTRALINE 100 MG TAB PO SCH (07:50)
[2017-09-12] MEDS: PANTOPRAZOLE 40MG TAB (PROTONIX) PO SCH (07:50)
[2017-09-12] MEDS: MIRALAX *UNIT DOSE* 17GM PACKET PO SCH (07:50)
[2017-09-12] MEDS: SENOKOT S TAB PO SCH (07:50)
[2017-09-12] MEDS: NICOTINE 21MG/24HR 1 EA TRANSDERMAL TD SCH (07:51)
[2017-09-12 08:00] VITALS: BP 103/68
--- NOTE | 2017-09-12 08:09 | DS.PDOC ---
Discharge Summary General Date of Admission Sep 09, 2017 at 15:13 Date of Discharge 09/12/2017 Attending Physician: QUANG SCHAEFER MD Specialist/Consultants Involve: Anthony Kahn MD Specialist/Consultants Involve Cardiology Primary care provider: MICK Singleton Discharge Summary PROCEDURES PERFORMED DURING STAY: Transesophageal echocardiogram CONCLUSIONS: 1.5 x 1.0 cm vegetation involving the tricuspid valve on the atrial side. Findings consistent with tricuspid valve infective endocarditis. Associated severe tricuspid regurgitation. Right basilic vein PICC line insertion ADMITTING DIAGNOSES: 1. MSSA bacteremia with suspected endocarditis and fever. 2. Cough. SECONDARY DIAGNOSES: 1. History of IVDA. 2. Depression. DISCHARGE DIAGNOSES: 1. MSSA bacteremia. 2. Acute bacterial infective endocarditis secondary to IVDA. 3. Cough, secondary to septic emboli. 4. Anemia. 5. Asthma. 6. Depression. 7. Opioid withdrawal. 8. Nicotine dependence. COMPLICATIONS/CHIEF COMPLAINT: Endocarditis. HISTORY OF PRESENT ILLNESS: : Ms. Shrestha is a 32-year-old female patient with underlying medical history of asthma, IV drug use, last with oxycodone, last used two weeks ago, smoking, asthma, who was treated for methicillin-sensitive Staphylococcus aureus (MSSA) in January and signed herself out against medical advice. Subsequently, she returned with a two-week history of progressively worsening fevers with a temperature of 103 and coughing productive of blood- tinged phlegm. The patient with culture returned to [facility] on 09/05/2017 for MSSA bacteremia, found to have a fever of 104. CT angiogram shows cavitary peripheral lesions. The patient denies any sick contact. Subsequently, the patient was admitted. She was given Ancef. She also has a history of depression and denies suicidality. Patient with questionable thyroid dysfunction. Over the last 24 hours, maximum temperature (T-max) is 99.8 as per the patient. Reported some mild cough. Reported chest pain, pleuritic in nature. Denies any nausea or vomiting. Reported anxiety secondary to opiate withdrawal and also reported constipation. HOSPITAL COURSE: Patient was admitted to the ICU and then down-graded to PCU. CRP and ESR (both appropriately elevated) and blood cultures (negative at our facility). Received IVF. Infectious disease consulted and recommended continuing antibiotics for 4-6 weeks in an in-patient setting due to patient's history of IVDA, hepatitis panel (which was negative), HIV screen (which was negative), and sputum cultures (which revealed yeast and Staphylococcus aureus) . Cardiology consulted to perform JEANNETTE which revealed findings listed above. PICC line was inserted for long-term antibiotic use. Chest x-ray with results below. Started on Thiamine, Folate, and Multivitamin for opioid withdrawal. Initially given Clonidine for bridging of withdrawal symptoms, but blood pressure was low, so it was discontinued. Patient requested Gabapentin as she said it helped with her withdrawals. Diazepam as needed for withdrawal. Nebulizer treatments for asthma, as needed. Depression was managed with patient 's home medication. Nicotine patch provided for nicotine dependence. Peripheral smear revealed normocytic anemia. [employer] consulted and secured long-term swing bed at [facility] for in-patient antibiotic. Transport arranged. TSH was elevated, but T3 and T4 were within optimal range. DVT prophylaxis with Heparin. DISCHARGE MEDICATIONS: Please see below. ALLERGIES: Please see below. PHYSICAL EXAMINATION ON DISCHARGE: VITAL SIGNS: Please see below. GENERAL: Petite female, alert and conversant, wearing a hospital gown , no acute distress HEENT: Atraumatic, normocephalic, PERRL, EOMI, oral mucosa appears pink and moist, nasal septum appears midline, nares are patent NECK: Soft, supple, trachea is midline, no lymphadenopathy CARDIOVASCULAR EXAMINATION: Regular rate and rhythm, prominent S2, normal S1, no murmur, rub, click RESPIRATORY EXAMINATION: Clear to auscultation bilaterally, adequate inspiratory and expiratory airway excursion, no wheeze, rhonchi, crackles ABDOMINAL EXAMINATION: Flat, soft, non-tender, non-distended, bowel sounds appreciated EXTREMITIES: Radial and posterior tibial pulses are equal, symmetrical, +2, several healed small excoriations noted on the back, no vertebral tenderness, no CVA tenderness, PICC line inserted into the right basilic vein without erythema, edema, or drainage SKIN: Warm, dry, intact, no edema NEUROLOGICAL EXAMINATION: CN II-XII grossly intact PSYCHIATRIC EXAMINATION: Alert and conversant LABORATORY DATA: Please see below. IMAGING: Chest x-ray, one view IMPRESSION: No acute cardiopulmonary process appreciated. PROGNOSIS: Stable ACTIVITY: As tolerated. DIET: Regular. DISCHARGE PLAN: As outlined below. DISPOSITION: Discharge to [facility]. DISCHARGE INSTRUCTIONS: 1. Complete 4-6 weeks of IV antibiotics at [facility]. 2. While on IV antibiotics, take a probiotic daily to help prevent against antibiotic-associated diarrhea. 3. For constipation, take MiraLax as needed, Colace, and Docusate. 4. Opioid withdrawal, continue with Diazepam as needed, Gabapentin, a Multivitamin, Thiamine, and Folate. 5. Asthma, continue with Breo. ITEMS TO FOLLOWUP ON ON OUTPATIENT: 1. MICK Singleton (primary care provider) after completion of IV antibiotic therapy. 2. Dr. Kahn (infectious disease), after completion of IV antibiotic therapy. DISCHARGE CONDITION: Stable. TIME SPENT ON DISCHARGE: Greater than 45 minutes. Vital Signs/I&Os Vital Signs Date Time Temp Pulse Resp B/P (MAP) Pulse Ox O2 Delivery O2 Flow Rate FiO2 09/11/17 23:09 98.0 96 16 96/66 (76) 96 Room Air 09/10/17 17:04 3.0 I&O- Last 24 Hours up to 6 AM 09/13/17 06:00 Intake Total 50 ml Balance 50 ml Laboratory Data Labs 24H Laboratory Tests 2 09/12/17 06:30: Nucleated Red Blood Cells % (auto) 0.0, Anion Gap 4L, Glomerular Filtration Rate > 60.0, Blood Urea Nitrogen 16#, Creatinine 0.55, Sodium Level 142, Potassium Level 4.5, Chloride Level 106, Carbon Dioxide Level 32, Calcium Level 8.5, Magnesium Level 2.2, C-Reactive Protein, Quantitative 0.64H CBC/BMP Laboratory Tests 09/12/17 06:30 Red Blood Count 3.55 L, Mean Corpuscular Volume 87.6, Mean Corpuscular Hemoglobin 26.5 L, Mean Corpuscular Hemoglobin Concent 30.2 L, Red Cell Distribution Width 18.8 H, Calcium Level 8.5 Microbiology Microbiology 09/09/17 Blood Culture - Preliminary, Resulted No Growth after 48 hours. All Specime... 09/09/17 Blood Culture - Preliminary, Resulted No Growth after 48 hours. All Specime... 09/09/17 Gram Stain - Final, Complete 09/09/17 Sputum Culture - Final, Complete Yeast Like Organism Staphylococcus Aureus Discharge Medications Scheduled Cefazolin Sod (Cefazolin/Dextrose 2 gm/100Ml) 2 Gm/100 Ml Inj, 2 GM IV Q8H, ( Reported) Docusate Sodium (Colace) 100 Mg Cap, 100 MG PO BID, (Reported) Enoxaparin Sodium (Lovenox) 40 Mg/0.4 Ml Inj, 40 MG SC QHS, (Reported) Fluticasone/Vilanterol (Breo Ellipta 100-25 Mcg/INH) 1 Inh Inh, 1 PUFF INH DAILY , (Reported) Folic Acid (Folic Acid) 1 Mg Tab, 1 MG PO DAILY Gabapentin (Gabapentin) 100 Mg Cap, 100 MG PO TID Multivitamins *[facility] STOCKED* (Thera M Plus *[facility] STOCKED*) 1 Tab Tab, 1 TAB PO DAILY Nicotine (Nicotine Step 1) 21 Mg/24 Hr Dis, 21 MG TD DAILY, (Reported) Senna (Senokot) 8.6 Mg Tab, 1 TAB PO BID, (Reported) Sertraline HCl (Sertraline HCl) 100 Mg Tab, 200 MG PO DAILY, (Reported) Thiamine Hcl (Thiamine Hcl) 100 Mg Tab, 100 MG PO DAILY Scheduled PRN Albuterol Sulfate (Ventolin Hfa) 108 Mcg/Act Aer, 2 PUFFS INH Q4HP PRN for SHORTNESS OF BREATH, (Reported) Diazepam (Diazepam) 2 Mg Tab, 2 MG PO Q6HP PRN for Anxiety Polyethylene Glycol (Miralax) 1 Pow Pow, 17 GM PO DAILYPRN PRN for CONSTIPATION, (Reported) dilute in 8 ounces of water or juice Allergies Coded Allergies: No Known Drug Allergy (Verified Allergy, Unknown, 09/09/17) MARIAN ROSA OGME-I Sep 12, 2017 08:09
[2017-09-12] MEDS: diazePAM 2 MG TAB PO PRN (11:59)
[2017-09-12 12:00] VITALS: BP 103/60
--- NOTE | 2017-09-12 20:07 | IPN ---
DATE: 09/12/2017 Gaye seems to be doing much better today. She is anxious to go back to [facility] to continue treatment for endocarditis with IV antibiotics. The patient had a transesophageal echocardiogram done on 09/10/2017, by Dr. Hand which showed a tricuspid valve vegetation of 1.5 x 1 cm associated with severe tricuspid regurgitation. There was at least one other small vegetation also on the tricuspid valve. No pericardial effusion. Aortic valve was structurally and functionally normal. Mitral leaflets were normal. PICC line was placed on 09/10/2017, and chest x-ray done on 09/09/2017, showed no acute pulmonary process. PHYSICAL EXAMINATION: Temperature is 98.6, pulse 103, respirations 25, blood pressure 103/60, oxygen saturation 98% on room air. The patient was afebrile over the past 24 hours. Her T-max was 100 on the day of admission. Heart: Normal S1, S2, tachycardiac. No murmurs appreciated. Lungs are clear. No wheezes, rales or rhonchi. Abdomen is soft, nontender. Extremities: No edema. Forearms have multiple track fulton but no evidence of infection or septic phlebitis of any of the veins. LABORATORY DATA: White count of 7.4, hemoglobin 9.4, hematocrit 31.1, platelets 258. ESR 87, 4% reticulocyte count. Sodium 142, potassium 4.5, chloride 106, bicarbonate 32, BUN 16, creatinine 0.5, glucose 117, calcium 8.5, magnesium 2.2, CRP on admission was 1.1, yesterday was 0.8, today was 0.64. Blood cultures from 09/09/2017, two sets, were no growth after 48 hours. Sputum culture had a yeastlike organism and moderate Staphylococcus aureus MSSA and moderate white cells. HIV, hepatitis B, hepatitis C and QuantiFERON TB Gold were negative. IMPRESSION: 1. Tricuspid valve endocarditis with a vegetation of 1.5 cm with MSSA bacteremia. DICTATION ENDS HERE
== END 2017-09-12 12:53 | disposition short-term general hospital (02) | DRG 721 ==
LOC: M ICU 15:13 → M PCU 09-10 17:50
PROVIDERS: ADMIT Hospitalist; ATTEND Internal Medicine Nephrology
PROC: 02HV33Z Insertion of Infusion Device into Superior Vena Cava, Percutaneous Approach (ICD-10-PCS; principal; 2017-09-10)
DX: T80.29XA Infection following other infusion, transfusion and therapeutic injection, initial encounter (principal); I33.0 Acute and subacute infective endocarditis; I76 Septic arterial embolism; R78.81 Bacteremia; F11.23 Opioid dependence with withdrawal; J45.20 Mild intermittent asthma, uncomplicated; F32.9 Major depressive disorder, single episode, unspecified; Z98.51 Tubal ligation status; F17.210 Nicotine dependence, cigarettes, uncomplicated; B95.61 Methicillin susceptible Staphylococcus aureus infection as the cause of diseases classified elsewhere; Z79.899 Other long term (current) drug therapy; Y82.9 Unspecified medical devices associated with adverse incidents

== ENCOUNTER → 2017-09-17 | Outpatient (CLI) | payer OTHER ==
[~2017-09-17] MED LIST changes: +BREO1INH INH; +CEFA2IV2 IV; +COLA100C5 PO; +DIAZ2TAB PO; +FOLI1TAB4 PO; +GABA-279 PO; +ISOVUE-300 61% 50ML VIAL (Q9967) As Ordered ONE; +LOVE1INJ SC; +MIRA3350 PO; +NICODIS TD; +SENO8.6T5 PO; +SERT-138 PO; +THIA100TA PO; +VALI10TA PO; +VENTAER INH; +VITMTA PO; -cloNIDine HCL 0.1 MG/24 HR PATCH TOP SCH; -cloNIDine HCL 0.2 MG/24 HR PATCH TOP SCH
--- NOTE | 2017-09-17 14:40 | REP ---
LEFT PICC LINE PLACEMENT. The procedure was performed by ITZ Barnett under the direct supervision of Dr. Earl. The procedure along with its risks, benefits, complications were discussed with the patient prior to the examination. Informed consent was obtained both verbally and written. The patient was identified in the interventional suite and placed in the supine position. The left arm was prepped and draped in the usual sterile fashion. A procedural time-out was performed to ensure that the correct patient, site and procedure were being performed. Under ultrasound guidance, the left basilic vein was punctured. A thin guidewire was introduced and the needle was removed. Local infiltrative anesthesia was achieved using 2% lidocaine. A break-away sheath was placed over the wire. Under fluoroscopic observation, via the break-away sheath, a 35 cm long 4.5-Grenadian single lumen PICC line was placed with its tip at the junction of the distal superior vena cava. The catheter was flushed with heparinized saline and affixed to the patient's skin. The patient tolerated the procedure well and had no immediate complications. IMPRESSION: Minimally complicated placement of left upper extremity single lumen PICC line. Fluoroscopy time of 0.7 minutes were utilized for this procedure. Reviewed by ITZ Barnett 09/17/2017 05:05 PEdited and Signed by Brett Earl MD 09/22/2017 05:10 P
== END ==
LOC: M RADPRO 11:27
PROVIDERS: ATTEND Internal Medicine
DX: Z79.2 Long term (current) use of antibiotics (principal); I33.0 Acute and subacute infective endocarditis; T80.29XA Infection following other infusion, transfusion and therapeutic injection, initial encounter; B95.61 Methicillin susceptible Staphylococcus aureus infection as the cause of diseases classified elsewhere; Y82.9 Unspecified medical devices associated with adverse incidents; I76 Septic arterial embolism; R78.81 Bacteremia; F11.23 Opioid dependence with withdrawal; J45.20 Mild intermittent asthma, uncomplicated; F32.9 Major depressive disorder, single episode, unspecified; Z86.79 Personal history of other diseases of the circulatory system; F17.210 Nicotine dependence, cigarettes, uncomplicated; Z79.899 Other long term (current) drug therapy
CPT/HCPCS: 36569; 76937; Q9967